=== PATIENT | male | born 1965 | race Caucasian/White ===

== ENCOUNTER 2021-10-20 13:30 | Outpatient (CLI) | payer OTHER, SELFPAY ==
--- NOTE | 2021-10-20 13:40 | ECHOCS_ITS ---
Reason For Study: New Murmur Procedure This was a 2D Doppler, Color Flow transthoracic echocardiogram. The study was technically difficult. Contrast injection was performed. Exam performed in department. Left Ventricle Normal LV size. The estimated ejection fraction is 55 %. No evidence for diastolic dysfunction. No regional wall motion abnormalities noted. Right Ventricle Normal RV size. Normal systolic function. Atria Normal left atrium. Normal right atrium. No doppler evidence for ASD. Mitral Valve There is mild to moderate mitral annular calcification. There is no mitral valve stenosis. No mitral valve insufficiency. Tricuspid Valve There is no tricuspid stenosis. Trivial tricuspid valve insufficiency. Pulmonary artery systolic pressure is 30 mmHg. Aortic Valve Mild diffuse aortic valve thickening. The aortic valve is not well visualized. Mild aortic stenosis. No aortic valve insufficiency. Pulmonic Valve There is no pulmonic valvular stenosis. No pulmonic valve insufficiency. Great Vessels Normal aortic root. Pericardium/Pleural No pericardial effusion. Medication 22 gauge I.V. with prn adaptor inserted into right arm. Diluted definity 3ml given slow IV push to enhance endocardial definition. MMode/2D Measurements & Calculations LVIDd: 4.8 cm IVSd: 1.1 cm LVOT diam: 2.2 cm LVIDs: 2.8 cm LVPWd: 1.1 cm FS: 41.1 % LVOT area: 3.7 cm2 Ao root diam: 3.3 cm LAV(MOD-bp): 68.9 ml LA A4 area: 23.0 cm2 LA dimension: 4.2 cm LAV(MOD-bp) Indexed: 31.2 ml/m2 LAV(MOD-sp2): 60.3 ml LAV(MOD-sp4): 70.0 ml RA A4 area: 16.5 cm2 Time Measurements MV dec time: 0.26 sec Doppler Measurements & Calculations MV E max jose: 71.5 cm/sec Lat Peak E' Jose: 10.6 cm/sec Med Peak E' Jose: 9.7 cm/sec MV A max jose: 84.6 cm/sec E/E' lat: 6.7 E/E' med: 7.4 MV E/A: 0.85 MV V2 max: 84.6 cm/sec MV P1/2t max joes: 80.2 cm/sec Ao V2 max: 229.1 cm/sec MV max P.9 mmHg MV P1/2t: 74.7 msec Ao max P.0 mmHg MV V2 mean: 53.1 cm/sec MV dec slope: 314.8 cm/sec2 Ao V2 mean: 143.7 cm/sec MV mean P.3 mmHg Ao mean P.9 mmHg MV V2 VTI: 19.6 cm MVA(P1/2t): 2.9 cm2 Ao V2 VTI: 48.8 cm MVA(VTI): 5.5 cm2 CAREN(I,D): 2.2 cm2 CAREN(V,D): 2.3 cm2 LV V1 max: 141.0 cm/sec SV(LVOT): 108.6 ml PA V2 max: 124.2 cm/sec LV V1 max P.0 mmHg LV V1 mean P.7 mmHg LV V1 mean: 92.8 cm/sec LV V1 VTI: 29.5 cm TR max jose: 246.5 cm/sec TR max P.3 mmHg ECHO/Echo Complete W/ Contrast Interpretation Summary The estimated ejection fraction is 55 %. No evidence for diastolic dysfunction. Mild aortic stenosis. Ordering Physician: Baldomero Urena Referring Physician: Baldomero Urena Performed By: Bassam Bradford RCS
== END 2021-10-20 23:59 | disposition short-term general hospital (02) ==
LOC: CVS 13:39
PROVIDERS: PCP Family Medicine; Referring Provider Family Medicine; Visit Provider Family Medicine
DX: R01.1 Cardiac murmur, unspecified (principal)
CPT/HCPCS: 93306; Q9957; A4216; C8929

== ENCOUNTER 2022-09-26 06:07 | Day surgery (SDC) | payer SELFPAY ==
[2022-09-26] VITALS (7 sets, daily range): BP systolic 104–140; BP diastolic 69–90; PULSE 80–100; RESP 16–18; TEMP 36.4–36.9; O2SAT 91–94; BMI 37.2
[2022-09-26] MEDS: Lactated Ringers 1,000 ML 15 ML IV ×2 (06:20→08:39)
--- NOTE | 2022-09-26 07:08 | PCM.HP.BLA ---
History and Physical Date of Admission: 09/26/22 Intake Vital Signs ? 03/09/2213:49 Height 5 ft 8 in Weight: 245 lb 8 oz BMI 37.3 BP 148/92 H Blood Pressure Location Rt brachial Position Sitting Respiration 18 Pulse 94 Pulse Source Monitor Temp 97.9 F Temp Source Temporal Pulse Oximetry (%) 94 Oxygen Delivery Method room air Intake Visit Reasons:?NODULE ABOVE BELLY BUTTON Chief Complaint: nodule above belly button Laboratory Sampler Required: No Is patient in pain?: No Allergies No Known Allergies Allergy (Unverified 03/09/22 13:51) Medications NK? 03/09/22 [History Confirmed 03/09/22] PFSH Family History?(Updated 03/09/22 @ 13:48 by Kenisha Enriquez) Father Diabetes HPI HPI HPI: DANNY BOOTHE, is a 56 M who presents to the office today for bulge above his umbilicus.? Patient has CT scan which showed an umbilical hernia.? Patient reports no discomfort or pain at the site. ROS General General: No weight change, appetite, fatigue, colon cancer, breast cancer or weakness HEENT HEENT: No difficulty swallowing, eye injury, eye surgery, swollen glands or hoarseness Endo Endocrine: No thyroid disease, diabetes mellitus, thyroid cancer, Hair loss, heat intolerance or cold intolerance Skin Skin: No rash or changing moles Breast Breast: No left breast lump, right breast lump, nipple discharge, breast pain, abnormal mammogram, abnormal US or breast enlargement Musc Musculoskeletal: No back problems, arthritis, rheumatoid arthritis, gout or joint pain Cardio Cardiovascular: Yes murmur; No pacemaker, heart disease, atrial fibrillation, high blood pressure, heart attack, heart stent, palpitations, shortness of breat with exertion or chest pain Psych Psychiatric: No depression, anxiety or hearing voices Resp Respiratory: No shortness of breath, No sleep apnea, No cough, No COPD, No asthma, No emphysema and No wheezing Gastro Gastrointestinal: No abdominal pain, No nausea or vomiting, No diarrhea, No constipation, No blood in stool, No acid reflux, No hemorrhoids, No ulcers, No gallbladder problem and No black,tarry stools Carlos Hematologic: No blood thinners, No blood disorders, No bleeding, No anemia and No blood clots Neuro Neurologic: No system reviewed and no additional complaints, except as documented, No as per HPI, No abnormal gait, No abnormal hearing, No abnormal movements, No abnormal speech, No behavioral changes, No burning sensations, No confusion, No convulsions, No disequilibrium, No dizziness, No localized weakness, No frequent falls, No headache(s), No lack of coordination, No loss of vision, No memory loss, No numbness, No other visual disturbances, No radicular pain, No restless legs, No sensory deficit, No syncope, No tingling, No tremor(s), No weakness and No other Exam Const General: cooperative Orientation: alert and oriented x3 HENMT Head: normal to inspection Neck Neck: normal visual inspection and full ROM Chest Chest palpation & inspection: normal inspection of the chest Resp Effort & Inspection: normal respiratory effort Auscultation: clear to auscultation bilaterally Cardio Rate: regular rate Rhythm: regular rhythm GI Inspection: non-distended Palpation: soft, hernia umbilical and nontender Skin General: no rashes or lesions noted Neuro General: patient alert and patient oriented x3 Extrem General: full ROM Psych Appearance: grossly normal Mental Status: mental status grossly normal Assessment and Plan Assessment and Plan (1) Umbilical hernia: ?Status:?Acute ?Plan: The patient has a small umbilical hernia containing fat that was confirmed on CT scan.? Patient is not having any symptoms at this time.? I discussed risks of hernia repair and discussed the procedure with him but he would like to hold off for now and continue to observe.? If it grows at all he will follow-up with me for discussion of repair. Ross Conner MD Pager: [facility] [address] [place] [address], [address] [place] [address] Office: I have examined the patient and the H&P has been reviewed. There are no clinical changes since date of exam.
[2022-09-26] MEDS: Cefazolin 2 GM in 0.9% Normal Saline 100 ML IV (07:35)
[2022-09-26] MEDS: Bupiv/Epi 0.5% Mpf 30 ML Vial (08:13)
--- NOTE | 2022-09-26 08:34 | PCM.OPRPT ---
Report of Operation Date of Procedure: 09/26/22 Pre-Operative Diagnosis: Ventral hernia Post-Operative Diagnosis: Ventral hernia less than 3 cm Surgery/Procedure Performed:: Ventral hernia repair with mesh Specimen's removed: None Description of Procedure: Patient was brought back to the operating room and general anesthesia was induced. The abdomen was prepped and draped in usual sterile fashion. An incision was made superior to the umbilicus and deepened to the fascia. The hernia sac was identified and dissected free from surrounding fat using blunt dissection. Hernia defect was approximately 1.8 cm. The hernia was reduced and the fascia was grasped and elevated. The fascia was dissected free exteriorly and anteriorly using electrocautery until there was a good preperitoneal plane and the external fascia was cleared for suture. Next a small ventral Da mesh was placed in the preperitoneal space and sutured to the anterior fascia using interrupted 2-0 PDS suture. The fascial defect was then closed with interrupted #1 Nurolon suture. The subcutaneous cavity was irrigated and suctioned dry and there was good hemostasis. The subcutaneous fat was closed with interrupted 3-0 Vicryl suture. Skin was closed with interrupted 3-0 Vicryl suture in a running 4-0 Monocryl suture. Steri-Strips and bandages were applied. Patient was awoken and taken to PACU in stable condition and tolerated the procedure well. Grafts/Implants Used: Small ventralex mesh Admit VTE Documentation VTE Mechan Device Prophylaxis: SCD's
--- NOTE | 2022-09-26 08:39 | DCINST_ITS ---
Discharge Instructions Procedure Hernia Diet Discharge Diet: Light diet - advance as tolerated Activity Discharge Activity: May Not Drive (for 2-3 days or while taking narcotic pain meds.) and May Shower (with the bandage in place 1-2 days after surgery.) Lifting Restrictions: 20 pounds for 4 weeks. Additional Activity Instructions:: Climbing stairs is fine, walking is encouraged. Sitting in bed may be uncomfortable. Sitting up using your lateral muscles (sitting up sideways) is usually more comfortable. Do not drive, work heavy equipment of sign legal documents for 24 hours. Pain medications may cause nausea, you should typically eat light foods as you take your pain medications. Pain medications may also cause constipation. If you have difficulty with this, discuss with your doctor. Dressing / Incision Call your doctor if your incision/area has: Continuous Slow Oozing, Sudden Increased Bleeding, Increased Pain/ Swelling, Increased Redness and Foul Smelling Discharge Call your doctor if you observe: Fever of 101 or Higher Suture Line Care: Avoid Pulling/Pushing and Avoid Pinching/Bending Remove Dressing in: 2 days (Remove clear bandages in 2 days, remove Steri-Strips in 7 to 10 days.) Follow Up Care Please Follow Up With: Ross Conner MD When: Please call to schedule 2 week follow up appointment. [phone] Test Results: Test results from this visit will be discussed in further detail at your follow- up appointment, if applicable. Discharge Plan Admission Attending Provider: Ross Conner Primary Care Provider: Baldomero Urena Discharge Orders/Prescriptions Prescriptions: New oxycodone 5 mg tablet 5 - 10 mg PO Q6H PRN (Reason: pain) 5 Days Qty: 20 0RF Referrals / Follow Up: Baldomero Urena DO [Primary Care Provider] - Disposition Disposition (needs filled in before D/C Order can be placed): Home, Self Care
--- NOTE | 2022-09-26 08:52 | EKG12_ITS ---
Test Reason : PRE-OP Blood Pressure : / mmHG Vent. Rate : 079 BPM Atrial Rate : 079 BPM P-R Int : 154 ms QRS Dur : 092 ms QT Int : 358 ms P-R-T Axes : 011 002 010 degrees QTc Int : 410 ms Normal sinus rhythm Normal ECG No previous ECGs available Confirmed by CALLUM FERNANDES, LUKAS ([id number]), book editor MINH FINLEY ([id number]) on 10/01/2022 11:12:48 AM Referred By: Ross Conner Confirmed By:GATITO NOLEN MD
[2022-09-26] MEDS: Acetaminophen 325 MG Tablet 650 MG PO (09:21)
--- NOTE | 2022-09-26 09:56 | SUR.PHASEII ---
INCENTIVE SPIROMETER GIVEN TO PATIENT AND PATIENT DEMONSTRATED UNDERSTANDING OF HOW TO USE IT D/T LOW SPO2 LEVEL OF 91%. THIS NURSE ALSO TAUGHT THE PATIENT HOW TO SPLINT HIS ABDOMEN AND COUGH.
== END 2022-09-26 10:37 | disposition home or self-care (01) ==
LOC: SDC 06:13 → AC 06:14
PROVIDERS: PCP Family Medicine; Referring Provider Surgery; Visit Provider Surgery
PROC: (CPT 49591; principal; 2022-09-26 07:15)
DX: K43.9 Ventral hernia without obstruction or gangrene (principal)
CPT/HCPCS: 49591; 00752; 93005; J7120; C1781; J2405